=== PATIENT | male | born 1980 | race African-American/Black ===

== ENCOUNTER 2021-08-05 08:50 | Inpatient (IN) | payer MEDICAID ==
[~2021-08-05] VITALS: Ht 185.4 cm; Wt 65.9 kg
[2021-08-05] MEDS ORDERED: HALOPERIDOL 5 MG TABLET PO ONE (09:30)
[2021-08-05] MEDS ORDERED: LORazepam 1 MG TABLET PO ONE (09:30)
[2021-08-05] MEDS ORDERED: ZOLPIDEM TARTRATE 10 MG TABLET PO PRN (10:30)
[2021-08-05 11:08] LABS: COVID AG,FIA SOURCE NASOPHARYNGEAL
[2021-08-05 11:12] LABS: APPEARANCE,URINE CLEAR (CLEAR); BILIRUBIN,URINE NEGATIVE (NEGATIVE); GLUCOSE, URINE (UA) NEGATIVE (NEGATIVE); KETONES,URINE 40-60 mg/dL (NEGATIVE); LEUKOCYTE ESTERASE ,URINE NEGATIVE (NEGATIVE); NITRATE,URINE NEGATIVE (NEGATIVE); OCCULT BLOOD,URINE NEGATIVE (NEGATIVE); PH,URINE 6.5 (5.0-8.0); PROTEIN,URINE 30-70 mg/dL (NEGATIVE); SPECIFIC GRAVITIY, URINE 1.031 (1.003-1.030); UROBILINOGEN,URINE <=1.0 mg/dL (<=1.0)
[2021-08-05 11:18] LABS: AMPHET/METH SCREEN,URINE POSITIVE (NEGATIVE); BARBITURATE SCREEN, URINE NEGATIVE (NEGATIVE); BENZODIAZEPINES SCREEN,URINE NEGATIVE (NEGATIVE); CANNABINOID SCREEN,URINE NEGATIVE (NEGATIVE); COCAINE SCREEN,URINE NEGATIVE (NEGATIVE); METHADONE SCREEN, URINE NEGATIVE (NEGATIVE); OPIATE SCREEN,URINE NEGATIVE (NEGATIVE)
[2021-08-05 11:20] LABS: PHENCYCLIDINE SCREEN,URINE NEGATIVE (NEGATIVE)
[2021-08-05 11:30] LABS: BACTERIA,URINE None Seen /HPF (None Seen); RBC,URINE None Seen /HPF (0-2); SQUAMOUS EPITHELIAL CELL,UR Few /LPF (None Seen); WBC,URINE 0-2 /HPF (0-5)
[2021-08-05] MEDS: LORazepam 2 MG TABLET PO PRN ×2 (13:54→22:48)
[2021-08-05 16:12] VITALS: BP 133/92
[2021-08-05] MEDS ORDERED: CloNIDine HCL 0.1 MG TABLET PO PRN (16:15)
[2021-08-05] MEDS ORDERED: LOPERAMIDE HCL 2 MG CAPSULE PO PRN (16:15)
[2021-08-05] MEDS ORDERED: GuaiFENesin/D-METHORPHAN [SUGAR-FREE] 200-20MG/10 ML SYRUP UDCUP PO PRN (16:15)
[2021-08-05] MEDS ORDERED: ONDANSETRON HCL 4 MG TABLET PO PRN (16:15)
[2021-08-05] MEDS ORDERED: MAG HYDROX/AL HYDROX/SIMETH ES 30 ML SUSPENSION UDCUP PO PRN (16:15)
[2021-08-05] MEDS ORDERED: NICOTINE 14 MG/24 HOUR PATCH TD PRN (16:15)
[2021-08-05] MEDS ORDERED: ACETAMINOPHEN 325 MG TABLET PO PRN (16:15)
[2021-08-05] MEDS ORDERED: ALBUTEROL SULFATE HFA 90 MCG/PUFF 8 GM INHALER IH PRN (16:15)
[2021-08-05] MEDS ORDERED: MAGNESIUM HYDROXIDE SUSPENSION 30 ML UDCUP PO PRN (16:15)
[2021-08-05] MEDS ORDERED: DOCUSATE SODIUM 100 MG CAPSULE PO PRN (16:15)
[2021-08-05] MEDS ORDERED: PETROLATUM,WHITE 28 GM JELLY TP PRN (16:15)
[2021-08-05] MEDS ORDERED: INFLUENZA VIRUS VACCINE QVS 2021-22 (6MO+)/PF 60 MCG/0.5 ML SYRINGE IM. ONE (17:15)
[2021-08-05] MEDS: HALOPERIDOL 5 MG TABLET PO PRN (22:48)
[2021-08-06] MEDS ORDERED: HALOPERIDOL LACTATE 5 MG/ML VIAL ONE (00:57)
[2021-08-06] MEDS ORDERED: DiphenhydrAMINE HCL 50 MG/ML VIAL ONE (00:57)
[2021-08-06] MEDS ORDERED: LORazepam 2 MG/ML VIAL ONE (00:57)
[2021-08-06] MEDS ORDERED: HALOPERIDOL LACTATE 5 MG/ML VIAL IM ONE (01:00)
[2021-08-06] MEDS ORDERED: LORazepam 2 MG/ML VIAL IM ONE (01:00)
[2021-08-06] MEDS ORDERED: DiphenhydrAMINE HCL 50 MG/ML VIAL IM ONE (01:00)
[2021-08-06 04:24] VITALS: BP 133/79
[2021-08-06 11:11] VITALS: BP 138/80
[2021-08-06 16:04] VITALS: BP 130/82
[2021-08-06] MEDS: LORazepam 2 MG TABLET PO PRN (17:18)
[2021-08-06] MEDS: HALOPERIDOL 5 MG TABLET PO PRN (17:18)
[2021-08-06] MEDS: OLANZapine 5 MG TABLET PO SCH (17:18)
[2021-08-07 04:06] VITALS: BP 126/73
[2021-08-07 08:14] VITALS: BP 116/68
[2021-08-07] MEDS: OLANZapine 5 MG TABLET PO SCH ×2 (09:12→16:15)
[2021-08-07] MEDS: LORazepam 2 MG TABLET PO PRN (09:12)
[2021-08-07] MEDS: HALOPERIDOL 5 MG TABLET PO PRN (09:12)
[2021-08-07 16:03] VITALS: BP 118/63
[2021-08-08 01:40] VITALS: BP 122/71
[2021-08-08 08:04] VITALS: BP 124/72
[2021-08-08] MEDS: LORazepam 2 MG TABLET PO PRN ×2 (08:29→16:55)
[2021-08-08] MEDS: OLANZapine 5 MG TABLET PO SCH ×2 (08:29→16:55)
[2021-08-08 16:34] VITALS: BP 100/65
[2021-08-09 04:27] VITALS: BP 108/73
[2021-08-09] MEDS: HALOPERIDOL 5 MG TABLET PO PRN ×2 (08:15→17:09)
[2021-08-09] MEDS: LORazepam 2 MG TABLET PO PRN ×2 (08:15→17:09)
[2021-08-09] MEDS: OLANZapine 5 MG TABLET PO SCH ×2 (08:15→17:09)
[2021-08-09 09:34] VITALS: BP 120/76
[2021-08-09] MEDS ORDERED: OLAN5TAB52 PO (14:59)
[2021-08-09 17:30] VITALS: BP 115/60
[2021-08-10 00:30] VITALS: BP 106/66
== END 2021-08-10 07:30 | disposition home or self-care (01) | DRG 750 ==
LOC: EMS 08:54 → B3A 11:47
PROVIDERS: ADMIT Psychiatry & Neurology Child & Adolescent Psychiatry; ATTEND Psychiatry & Neurology Child & Adolescent Psychiatry
DX: F20.9 Schizophrenia, unspecified (principal); Z59.00 Homelessness unspecified; F10.10 Alcohol abuse, uncomplicated; F41.9 Anxiety disorder, unspecified; Z20.822 Contact with and (suspected) exposure to COVID-19; K59.00 Constipation, unspecified; Z87.891 Personal history of nicotine dependence; Z88.8 Allergy status to other drugs, medicaments and biological substances; Z79.899 Other long term (current) drug therapy
CPT/HCPCS: 81001; 99285; J1200; J1630; J2060